=== PATIENT | male | born 1950 ===

== ENCOUNTER 2017-12-18 11:09 | Emergency (ER) | payer MEDICARE, OTHER ==
--- NOTE | 2017-12-18 13:18 | RAD ---
HISTORY: cough x 5 days COMPARISON: No prior. TECHNIQUE: Chest PA and lateral FINDINGS: LUNGS: No consolidation. PLEURA: No significant pleural effusion identified. No pneumothorax apparent. CARDIOVASCULAR: Cardiomegaly and mild central pulmonary venous congestion OSSEOUS STRUCTURES: Thoracic spondylosis. Minimal scoliosis VISUALIZED UPPER ABDOMEN: Normal. OTHER FINDINGS: None. IMPRESSION: Cardiomegaly and mild pulmonary venous congestion. A concomitant pneumonitis not excluded. No consolidative infiltrate or atelectasis.
--- NOTE | 2017-12-18 14:04 | ED PDOC ---
HPI: CCC, URI, Sore Throat Time Seen by Provider: 12/18/17 11:36 Chief Complaint (Nursing): Cough, Cold, Congestion Chief Complaint (Provider): Cough, chest congestion History Per: Patient History/Exam Limitations: no limitations Onset/Duration Of Symptoms: Days (x5) Current Symptoms Are (Timing): Still Present Associated Symptoms: Cough (dry), Nasal Congestion (chest ). denies: Fever, Chills, Other (chest pain, abdominal pain) Ear Symptoms: Bilateral: None Additional Complaint(s): Tammy Waller is a 67 year old male, with no significant past medical history, who presents to the emergency department complaining of dry cough and chest congestion onset for x5 days. Patient thinks he has bronchitis. He denies any fever, chills, chest pain or abdominal pain. No further medical complaints. PMD: Isidro Collado Past Medical History Reviewed: Historical Data, Nursing Documentation, Vital Signs Vital Signs: Last Vital Signs Temp 97 F L 12/18/17 11:30 Pulse 60 12/18/17 11:30 Resp 18 12/18/17 11:30 BP 131/76 12/18/17 11:30 Pulse Ox 97 12/18/17 14:13 - Medical History PMH: No Chronic Diseases - Surgical History Surgical History: No Surg Hx - Family History Family History: States: Unknown Family Hx - Living Arrangements Living Arrangements: With Family ( and niece) - Social History Current smoker - smoking cessation education provided: Yes (Light smoker <10 cigarettes daily) Drugs: Denies - Immunization History Hx Tetanus Toxoid Vaccination: No Hx Influenza Vaccination: No Hx Pneumococcal Vaccination: No - Home Medications Home Medications: Ambulatory Orders Medication Instructions Recorded Promethazine DM [Phenergan DM 10 ml PO Q8H PRN #120 ml 12/18/17 Syrup] - Allergies Allergies/Adverse Reactions: Allergies Allergy/AdvReac Type Severity Reaction Status Date / Time No Known Allergies Allergy Verified 12/18/17 11:30 Review of Systems Constitutional: Negative for: Fever, Chills ENT: Positive for: Nose Congestion (chest congestion) Cardiovascular: Negative for: Chest Pain Respiratory: Positive for: Cough (dry) Gastrointestinal: Negative for: Abdominal Pain Physical Exam - Reviewed Nursing Documentation Reviewed: Yes Vital Signs Reviewed: Yes - Physical Exam Appears: Positive for: Well, Non-toxic, No Acute Distress Head Exam: Positive for: ATRAUMATIC, NORMAL INSPECTION, NORMOCEPHALIC Skin: Positive for: Normal Color, Warm, Dry Eye Exam: Positive for: Normal appearance ENT: Positive for: Normal ENT Inspection Neck: Positive for: Painless ROM, Supple Cardiovascular/Chest: Positive for: Regular Rate, Rhythm. Negative for: Edema, JVD, Murmur Respiratory: Positive for: Normal Breath Sounds. Negative for: Rales, Wheezing , Respiratory Distress Gastrointestinal/Abdominal: Positive for: Normal Exam, Soft. Negative for: Tenderness Back: Positive for: Normal Inspection. Negative for: L CVA Tenderness, R CVA Tenderness, Vertebral Tenderness Extremity: Positive for: Normal ROM (all extremities). Negative for: Tenderness , Deformity, Swelling Neurologic/Psych: Positive for: Alert, Oriented. Negative for: Motor/Sensory Deficits - Laboratory Results Result Diagrams: 12/18/17 14:11 12/18/17 14:11 - ECG O2 Sat by Pulse Oximetry: 97 (RA) Pulse Ox Interpretation: Normal Medical Decision Making Medical Decision Making: Initial Impression: URI. Initial Plan: --B-Type Natriuretic Peptide --BMP --CBC w/ differential --Chest two views (PA/LAT) [RAD] --Reevaluation 13:16 CXR FINDINGS: LUNGS: No consolidation. PLEURA: No significant pleural effusion identified. No pneumothorax apparent. CARDIOVASCULAR: Cardiomegaly and mild central pulmonary venous congestion OSSEOUS STRUCTURES: Thoracic spondylosis. Minimal scoliosis VISUALIZED UPPER ABDOMEN: Normal. OTHER FINDINGS: None. IMPRESSION: Cardiomegaly and mild pulmonary venous congestion. A concomitant pneumonitis not excluded. No consolidative infiltrate or atelectasis. 13:40 -Chest X-Ray show some cardiomegaly and pulmonary venous congestion, could be cardiac related, decided to do order blood work. Scribe Attestation: Documented by Cirilo Sabillon, acting as a scribe for Rosa Cesar MD Provider Scribe Attestation: All medical record entries made by the Scribe were at my direction and personally dictated by me. I have reviewed the chart and agree that the record accurately reflects my personal performance of the history, physical exam, medical decision making, and the department course for this patient. I have also personally directed, reviewed, and agree with the discharge instructions and disposition. Disposition - Clinical Impression Clinical Impression: Common cold, Chest congestion - Patient ED Disposition Is Patient to be Admitted: No Doctor Will See Patient In The: Office Counseled Patient/Family Regarding: Diagnosis, Need For Followup - Disposition Referrals: [facility] [Outside] [employer] [facility]Outside[facility] [[facility]] [employer] [place] [Outside] Disposition: Routine/Home Disposition Time: 15:21 Condition: STABLE Prescriptions: Promethazine DM [Phenergan DM Syrup] 10 ml PO Q8H PRN #120 ml PRN Reason: Cough Instructions: Viral Upper Respiratory Infection, Adult (DC) Forms: [employer] (Kazakh) Print Language: CHINESE - POA Present On Arrival: None
[2017-12-18 14:27] LABS: BLOOD UREA NITROGEN 11 mg/dl (9-20); GFR AFRICAN-AMERICAN > 60; GFR NON-AFRICAN AMERICAN > 60
[2017-12-18 14:32] LABS: BASO % 0.3 % (0.0-2.0); EOS # 0.4 K/uL (0.0-0.7); EOS % 4.7 % (0.0-4.0); HEMOGLOBIN 14.2 g/dL (12.0-18.0); MEAN CELL VOLUME 88.6 fl (80.0-94.0); MEAN CORPUSCULAR HEMOGLOBIN 29.8 pg (27.0-31.0); MEAN CORPUSCULAR HGB CONC 33.6 g/dL (33.0-37.0); MEAN PLATELET VOLUME 9.2 fl (7.2-11.7); MONO # 0.8 K/uL (0.0-0.8); MONO % 10.1 % (0.0-10.0); NEUT # 4.7 K/uL (1.8-7.0); NEUT % 59.9 % (50.0-75.0); NRBC % 0.1 % (0.0-0.0); RBC 4.76 Mil/uL (4.40-5.90); RED CELL DISTRIBUTION WIDTH 13.8 % (11.5-14.5); WHITE BLOOD COUNT 7.9 K/uL (4.8-10.8)
[2017-12-18 14:36] LABS: B-TYPE NATRIURETIC PEPTIDE 253 pg/ml (0-900)
[2017-12-18 15:30] VITALS: BP 135/75; PULSE 72; RESP 15; TEMP 98.4; O2SAT 98
== END 2017-12-18 15:30 | disposition home or self-care (01) ==
LOC: H.ER 11:09
DX: R09.89 Other specified symptoms and signs involving the circulatory and respiratory systems (principal); J00 Acute nasopharyngitis [common cold]; F17.210 Nicotine dependence, cigarettes, uncomplicated